=== PATIENT | male | born 1975 | race Hispanic/Latino ===

== ENCOUNTER 2022-10-04 07:11 | Emergency (ER) | payer SELFPAY ==
[2022-10-04] MEDS ORDERED: TETANUS & DIPHTHERIA TOX,ADULT 0.5 ML VIAL ONE (08:08)
--- NOTE | 2022-10-04 08:11 | EDPHYS ---
Physician Documentation [facility] Name: Danilo Gil Age: 47 yrs Sex: Male : 1975 Arrival Date: 10/04/2022 Time: 07:11 Bed 17 Private MD: ED Physician Aleksander Shen HPI: 10/04 07:26 This 47 yrs old Male presents to ER via Unassigned with complaints of Hand curry Injury. 07:26 The patient or guardian reports decreased range of motion, pain, swelling, tenderness. curry The complaints affect the right hand diffusely. 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 Onset: The symptoms/episode began/occurred just prior to arrival. Modifying factors: The symptoms are alleviated by nothing, the symptoms are aggravated by movement, dependent position. Associated signs and symptoms: The patient has no apparent associated signs or symptoms. Severity of symptoms: At their worst the symptoms were mild, in the emergency department the symptoms are unchanged. The patient has not experienced similar symptoms in the past. Historical: - Allergies: 07:28 No Known Allergies; curry - Home Meds: 07:30 None [Active]; jl7 - PMHx: 07:30 None; jl7 - PSHx: 07:30 None; jl7 - Immunization history:: Adult Immunizations unknown. - Social history:: Patient/guardian denies using alcohol, street drugs, IV drugs, Smoking status: Patient reports the use of cigarette tobacco products, denies chronic smoking, but will smoke occasionally. - Family history:: not pertinent. ROS: 07:26 Constitutional: Negative for fever, chills, and weight loss, Eyes: Negative for injury, curry pain, redness, and discharge, ENT: Negative for injury, pain, and discharge, Neck: Negative for injury, pain, and swelling, Cardiovascular: Negative for chest pain, palpitations, and edema, Respiratory: Negative for shortness of breath, cough, wheezing, and pleuritic chest pain, Abdomen/GI: Negative for abdominal pain, nausea, vomiting, diarrhea, and constipation, Back: Negative for injury and pain, : Negative for injury, bleeding, discharge, and swelling, Skin: Negative for injury, rash, and discoloration, Neuro: Negative for headache, weakness, numbness, tingling, and seizure, Psych: Negative for depression, anxiety, suicide ideation, homicidal ideation, and hallucinations, Allergy/Immunology: Negative for hives, rash, and allergies, Endocrine: Negative for neck swelling, polydipsia, polyuria, polyphagia, and marked weight changes, Hematologic/Lymphatic: Negative for swollen nodes, abnormal bleeding, and unusual bruising. 07:26 MS/extremity: Positive for abrasion, pain, swelling. Exam: 07:26 Constitutional: This is a well developed, well nourished patient who is awake, alert, curry and in no acute distress. Head/Face: Normocephalic, atraumatic. Eyes: Pupils equal round and reactive to light, extra-ocular motions intact. Lids and lashes normal. Conjunctiva and sclera are non-icteric and not injected. Cornea within normal limits. Periorbital areas with no swelling, redness, or edema. ENT: Nares patent. No nasal discharge, no septal abnormalities noted. Tympanic membranes are normal and external auditory canals are clear. Oropharynx with no redness, swelling, or masses, exudates, or evidence of obstruction, uvula midline. Mucous membranes moist. Neck: Trachea midline, no thyromegaly or masses palpated, and no cervical lymphadenopathy. Supple, full range of motion without nuchal rigidity, or vertebral point tenderness. No Meningismus. Chest/axilla: Normal chest wall appearance and motion. Nontender with no deformity. No lesions are appreciated. Cardiovascular: Regular rate and rhythm with a normal S1 and S2. No gallops, murmurs, or rubs. Normal PMI, no JVD. No pulse deficits. Respiratory: Lungs have equal breath sounds bilaterally, clear to auscultation and percussion. No rales, rhonchi or wheezes noted. No increased work of breathing, no retractions or nasal flaring. Abdomen/GI: Soft, non-tender, with normal bowel sounds. No distension or tympany. No guarding or rebound. No evidence of tenderness throughout. Back: No spinal tenderness. No costovertebral tenderness. Full range of motion. Male : Normal genitalia with no discharge or lesions. MS/ Extremity: Pulses equal, no cyanosis. Neurovascular intact. Full, normal range of motion. Neuro: Awake and alert, GCS 15, oriented to person, place, time, and situation. Cranial nerves II-XII grossly intact. Motor strength 5/5 in all extremities. Sensory grossly intact. Cerebellar exam normal. Normal gait. Psych: Awake, alert, with orientation to person, place and time. Behavior, mood, and affect are within normal limits. 07:26 Skin: injury, abrasion(s), small abrasion noted, of the dorsum of right hand. Vital Signs: 07:22 BP 126 / 78; Pulse 60; Resp 15; Temp 97.9; Pulse Ox 98% ; Pain 0/10; jl7 07:31 BP 126 / 78; Pulse 58; Resp 18; Pulse Ox 98% on R/A; Pain 7/10; ld1 07:22 Pain Scale: Adult jl7 07:31 Pain Scale: Adult ld1 MDM: 07:14 Patient medically screened. curry 07:28 Differential diagnosis: dislocation, closed fracture, contusion, abrasion, tendonitis. curry Data reviewed: vital signs, nurses notes, radiologic studies, plain films. Consideration of Admission/Observation Escalation of care including admission/observation considered. I considered the following discharge prescriptions or medication management in the emergency department Medications were administered in the Emergency Department. See MAR. Test considered but Not performed: Labs: NO LABS. Care significantly affected by the following chronic conditions: NONE. 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 Exp: ld1 10/27/2023. Lot #: [id number]. } Route: IM; Site: left deltoid; 08:17 Drug: Olybgggg-Vxynvwdork-Qdioinrwj Topical Ointment 1 application Route: Topical; ld1 Site: affected area; Disposition Summary: 10/04/22 08:10 Discharge Ordered Location: Home curry Problem: new curry Symptoms: have improved curry Condition: Stable curry Diagnosis - Abrasion of right hand curry - Contusion of right hand curry Followup: curry - With: Private Physician - When: 2 - 3 days - Reason: Recheck today's complaints, Continuance of care, Re-evaluation by your physician Discharge Instructions: - Discharge Summary Sheet curry - Abrasion curry - Contusion curry - Contusion, [id number]-[id number] curry - Abrasion, [id number] curry Forms: - Medication Reconciliation Form curry - Thank You Letter curry - Antibiotic Education curry - Prescription Opioid Use curry Signatures: Dispatcher [employer] EDAleksander Palmer MD MD cha Leal, Jahala RN RN jl7 Leann Marroquin RN RN ld1
--- NOTE | 2022-10-04 08:11 | ER ---
Nurse's Notes [facility] Name: Danilo Gil Age: 47 yrs Sex: Male : 1975 Arrival Date: 10/04/2022 Time: 07:11 Bed 17 Private MD: Diagnosis: Abrasion of right hand;Contusion of right hand Presentation: 10/04 07:22 Chief complaint: Patient states: Sled Maker to top of left hand 30 minutes prior to jl7 arrival, denies pain. Coronavirus screen: At this time, the client does not indicate any symptoms associated with coronavirus-19. Ebola Screen: No symptoms or risks identified at this time. Initial Sepsis Screen: Does the patient meet any 2 criteria? No. Patient's initial sepsis screen is negative. Does the patient have a suspected source of infection? No. Patient's initial sepsis screen is negative. Risk Assessment: Do you want to hurt yourself or someone else? Patient reports no desire to harm self or others. Onset of symptoms was October 04, 2022 at 07:00. 07:22 Method Of Arrival: Ambulatory [facility] 07:22 Acuity: MILTON 4 jl7 Triage Assessment: 07:22 General: Appears in no apparent distress. uncomfortable, Behavior is calm, cooperative, jl7 appropriate for age. Pain: Denies pain. Musculoskeletal: Swelling present in left hand. Injury Description: Abrasion sustained to left hand. Historical: - Allergies: 07:28 No Known Allergies; curry - Home Meds: 07:30 None [Active]; jl7 - PMHx: 07:30 None; jl7 - PSHx: 07:30 None; jl7 - Immunization history:: Adult Immunizations unknown. - Social history:: Patient/guardian denies using alcohol, street drugs, IV drugs, Smoking status: Patient reports the use of cigarette tobacco products, denies chronic smoking, but will smoke occasionally. - Family history:: not pertinent. Screenin:31 [facility] ED Fall Risk Assessment (Adult) History of falling in the last 3 months, ld1 including since admission No falls in past 3 months (0 pts). Abuse screen: Denies threats or abuse. Denies injuries from another. Nutritional screening: No deficits noted. Tuberculosis screening: No symptoms or risk factors identified. Assessment: 07:31 General: Appears in no apparent distress. comfortable, Behavior is calm, cooperative, ld1 appropriate for age. Pain: Complains of pain in right hand and left hand Pain does not radiate. Pain currently is 7 out of 10 on a pain scale. Neuro: Level of Consciousness is awake, alert, obeys commands, Oriented to person, place, time, situation. Cardiovascular: Capillary refill < 3 seconds Patient's skin is warm and dry. Respiratory: Airway is patent Respiratory effort is even, unlabored. GI: Abdomen is flat, non-distended. : No signs and/or symptoms were reported regarding the genitourinary system. EENT: No signs and/or symptoms were reported regarding the EENT system. Derm: No signs and/or symptoms reported regarding the dermatologic system. Musculoskeletal: No signs and/or symptoms reported regarding the musculoskeletal system. Vital Signs: 07:22 BP 126 / 78; Pulse 60; Resp 15; Temp 97.9; Pulse Ox 98% ; Pain 0/10; jl7 07:31 BP 126 / 78; Pulse 58; Resp 18; Pulse Ox 98% on R/A; Pain 7/10; ld1 07:22 Pain Scale: Adult jl7 07:31 Pain Scale: Adult ld1 ED Course: 07:13 Patient arrived in ED. rg4 07:14 Aleksander Shen MD is Attending Physician. [facility] 07:18 Leann Marroquin, [place] is Primary Nurse. ld1 07:22 Arm band placed on right wrist. jl7 07:29 Triage completed. jl7 07:31 Patient has correct armband on for positive identification. Placed in gown. Bed in low ld1 position. Call light in reach. Side rails up X2. Pulse ox on. NIBP on. Door closed. Noise minimized. 07:31 No provider procedures requiring assistance completed. ld1 07:56 XRAY Hand RIGHT 3 View In Process Unspecified. EDMS 08:21 Patient did not have IV access during this emergency room visit. ld1 Administered Medications: 08:16 Drug: Tetanus-Diphtheria Toxoid IM Adult 0.5 ml {Supervisor Alum Plant: [employer]. Exp: ld1 10/27/2023. Lot #: [id number]. } Route: IM; Site: left deltoid; 08:17 Drug: Ygihxkcn-Bcmdexuqes-Pgvqflgme Topical Ointment 1 application Route: Topical; ld1 Site: affected area; Medication: 08:21 Vaccine Information Statement (VIS) provided today. Questions and/or concerns ld1 addressed. VIS edition date: October 04, 2022. Outcome: 08:10 Discharge ordered by . curry 08:21 Discharged to home ambulatory. ld1 08:21 Condition: stable 08:21 Discharge instructions given to patient, family, Instructed on discharge instructions, follow up and referral plans. Demonstrated understanding of instructions, follow-up care. 08:21 Patient left the ED. ld1 Signatures: Dispatcher [employer] EDMS Aleksander Shen MD MD cha Garcia, Rubi rg4 Gale Haque RN RN jl7 Leann Marroquin RN RN ld1
[2022-10-04 08:27] VITALS: BP 126/78; TEMP 97.9; O2SAT 98
--- NOTE | 2022-10-04 08:47 | RAD REPORT ---
EXAM DESCRIPTION: RAD - Hand Right 3 View - 10/04/2022 7:54 am CLINICAL HISTORY: PAIN COMPARISON: No comparisons TECHNIQUE: Right hand, 3 views. FINDINGS: No fracture is identified. Incidentally noted accessory ossicle at the ulnar styloid. There is no dislocation or periosteal reaction noted. No foreign body. Soft tissue swelling about the palm of the hand. IMPRESSION: Soft tissue swelling without acute osseous abnormality.
== END 2022-10-04 08:21 | disposition home or self-care (01) ==
LOC: ER 07:11
DX: S60.511A Abrasion of right hand, initial encounter (principal); S60.221A Contusion of right hand, initial encounter
CPT/HCPCS: 90714